=== PATIENT | female | born 1980 | race Two or more races ===

== ENCOUNTER 2017-09-21 10:38 | Emergency (ER) | payer BC ==
[~2017-09-21] VITALS: Ht 154.9 cm; Wt 53.2 kg
[2017-09-21] MEDS ORDERED: MOTRIN600 MG PO (11:29)
[2017-09-21] MEDS ORDERED: NORCO 5/3251 TABLET PO (11:29)
[2017-09-21 11:39] VITALS: BP 106/74
== END 2017-09-21 11:40 | disposition home or self-care (01) ==
LOC: EME 10:38
DX: S39.92XA Unspecified injury of lower back, initial encounter (principal); W18.39XA Other fall on same level, initial encounter; Y93.89 Activity, other specified; Y92.002 Bathroom of unspecified non-institutional (private) residence as the place of occurrence of the external cause
CPT/HCPCS: 99281; 99283